=== PATIENT | male | born 1980 | race Asian ===

== ENCOUNTER 2017-12-30 10:14 | Outpatient (CLI) | payer OTHER | END 2017-12-30 10:15 | disposition home or self-care (01) | LOC: SC 10:14 | PROVIDERS: ATTEND Internal Medicine Pulmonary Disease | DX: G47.33 Obstructive sleep apnea (adult) (pediatric) (principal) | CPT/HCPCS: 99203; 99212 ==

== ENCOUNTER 2018-02-18 20:23 | Outpatient (CLI) | payer OTHER | END 2018-02-18 20:24 | disposition home or self-care (01) | LOC: SC 20:23 | PROVIDERS: ATTEND Internal Medicine Pulmonary Disease | DX: G47.33 Obstructive sleep apnea (adult) (pediatric) (principal); I49.3 Ventricular premature depolarization | CPT/HCPCS: 95811 ==

== ENCOUNTER 2018-02-23 14:52 | Outpatient (CLI) | payer OTHER | END 2018-02-23 14:53 | disposition home or self-care (01) | LOC: SC 14:52 | PROVIDERS: ATTEND Internal Medicine Pulmonary Disease | DX: G47.33 Obstructive sleep apnea (adult) (pediatric) (principal) | CPT/HCPCS: 99212; 99213 ==

== ENCOUNTER 2020-01-18 09:42 | Outpatient (CLI) | payer OTHER ==
--- NOTE | 2020-01-18 10:15 | SLEEP CARE CONSULTATION ---
Information from patient questionnaire entered by Jasmin William. I have reviewed and concur with the information entered by Jasmin William. This document represents the service I personally performed and the decisions made by me, Chacorta Mcdermott MD, [facility]. History of Present Illness Service Date and Time: 01/18/2020 0942 Previous diagnosis: Moderate, Obstructive Sleep Apnea-Hypopnea Syndrome AHI: 24.4 (in 2018) Reason for follow up: annual (last seen 2018) Equipment type: CPAP Equipment obtained from: [employer] Mask style: Full face Prior sleep studies: Yes Year and Where: 2018 - [facility] additional information: Mr. Reyna was diagnosed to have moderate obstructive sleep apnea-hypopnea syndrome and returns today for annual follow up of CPAP therapy. The patient purchased the device from [employer] and was fitted with a nasal mask. He continues to use the device nightly and all through the night. The compliance report shows that he uses the device 55 nights out of the past 60 nights, averaging 4.5 hours a night. The > 4 hour compliance rate for the past 30 days is 68.3%. He complains of no particular problem with the device such as soreness on the face, dry nose, epistaxis, nasal congestion or headache. He thinks that the pressure of 12 - 15 cmH2O is comfortable. On the CPAP therapy he notices improvement in his sleep quality, and that he wakes up feeling fresher in the morning and more awake/alert during the day. [place] Sleepiness Scale score is 8. The average residual AHI is 10.3; and average time in large leak per day is, 6 minutes a night. The 90th percentile pressure is 14.9 cmH2O. CPAP Compliance Data - Data Reviewed with Patient Average duration of nightly device use: 4.9 Compliance rate %: 68.3 (60 days) Current pressure setting (cmH2O): 12-15 Humidity settin Heated hose settin Average residual AHI: 10.3 Average large leak: 6 min 2 sec Subjective Missed days of use due to: reports: travel, other (deployment/duty) Initial [place] Sleepiness Scale score: 14 (in 2018) Current [place] Sleepiness Scale score: 8 Allergies and Home Medications Drug allergies reviewed: Yes (NKDA) Home medication list reviewed: Yes Physical Exam Height: 5 ft 7 in Weight: 190 lb Body Mass Index: 29.7 BMI Classification: Overweight Impression and Plan IMPRESSION: 1. Obstructive Sleep Apnea-Hypopnea Syndrome, moderate, with the patient continuing to do fairly well on nasal CPAP therapy. He has slightly [id number] compliance but significant clinical benefits. The current pressure appears slightly ineffective but comfortable. Overall, he is very satisfied with treatment and plans to continue with it long-term. Because the residual AHI is now elevated, I will raise the pressure range. PLAN: 1. Increase autoCPAP to 12 18 cm H2O. 2. Try to lose weight 3. Return in 6 weeks for follow up to recheck the residual AHI value. He will be relocating to [place] in March. Visit Type: In Office Time Spent with Patient (minutes): 15 Provider Statement: I spent 100% of the Face to Face Visit with the patient with greater than 50% spent counseling the patient and coordination of care.
== END 2020-01-18 09:43 | disposition home or self-care (01) ==
LOC: SC 09:42
PROVIDERS: ATTEND Internal Medicine Pulmonary Disease
DX: G47.33 Obstructive sleep apnea (adult) (pediatric) (principal); E66.3 Overweight; Z68.29 Body mass index [BMI] 29.0-29.9, adult
CPT/HCPCS: 99212; 99213

== ENCOUNTER 2020-02-29 09:49 | Outpatient (CLI) | payer OTHER ==
--- NOTE | 2020-02-29 10:26 | SLEEP CARE CONSULTATION ---
Information from patient questionnaire entered by Jasmin William. I have reviewed and concur with the information entered by Jasmin William. This document represents the service I personally performed and the decisions made by me, Chacorta Mcdermott MD, [facility] [place]. History of Present Illness Service Date and Time: 02/29/2020 0949 Previous diagnosis: Moderate, Obstructive Sleep Apnea-Hypopnea Syndrome AHI: 24.4 (in 2018) Reason for follow up: other (6 week with pressure change) Equipment type: CPAP Equipment obtained from: Other ([employer]) Mask style: Full face Prior sleep studies: Yes Year and Where: 2018 - [place], [place] HPI additional information: HPI: Mr. Reyna was diagnosed to have moderate obstructive sleep apnea-hypopnea syndrome and returns today for follow up of CPAP therapy after his pressure was raised from 12 15 to 12 18 cmH2O for elevated residual AHI of 10.3. He wears a full face mask. He continues to use the device nightly and all through the night. The compliance report shows he use the device 25 nights out of the past 30 nights, averaging 6.1 hours a night. The > 4 hour compliance rate for the past 30 days is 67%. He complains of no particular problem with the device such as soreness on the face, dry nose, epistaxis, nasal congestion or headache. He thinks that the pressure of 12 - 15 12 [id number] is comfortable. On the CPAP therapy he notices improvement in his sleep quality, and that he wakes up feeling fresher in the morning and more awake/alert during the day. [place] Sleepiness Scale score is 8. The average residual AHI is now 7.6; and average t iliana in large leak per day is, 3 minutes a night. The 90th percentile pressure is 17.8 cmH2O. Allergies: no known drug allergies CPAP Compliance Data - Data Reviewed with Patient Average duration of nightly device use: 6.05 Compliance rate %: 66.7 Current pressure setting (cmH2O): 12-18 Humidity settin Heated hose settin Average residual AHI: 7.6 Average large leak: 3 min 43 sec Subjective Missed days of use due to: reports: other ( days) Current pressure setting perceived as: comfortable Initial [place] Sleepiness Scale score: 14 (in 2018) Current [place] Sleepiness Scale score: 8 Allergies and Home Medications Drug allergies reviewed: Yes Home medication list reviewed: Yes Physical Exam Vital signs obtained and entered by: To minimize the risk of COVID-19 exposure, detailed exam was not performed. Height: 5 ft 7 in Weight: 190 lb Body Mass Index: 29.7 BMI Classification: Overweight Impression and Plan IMPRESSION: 1. Obstructive Sleep Apnea-Hypopnea Syndrome, moderate, with the patient continuing to do fairly well on nasal CPAP therapy. He has slightly [id number] compliance but significant clinical benefits. The current pressure appears slightly ineffective still but remains comfortable. Overall, he is very satisfied with treatment and plans to continue with it long-term. I will raise the pressure range a little bit more. This is his last visit with us because he is retiring from the [employer] and moving back to [place]. PLAN: 1. Increase autoCPAP to 12 20 cm H2O. 2. Provide the patient with our records for him to take with him to [place]. 3. Establish care with the [facility] at his new location. Visit Type: In Office Time Spent with Patient (minutes): 15 Provider Statement: I spent 100% of the Face to Face Visit with the patient with greater than 50% spent counseling the patient and coordination of care.
== END 2020-02-29 09:50 | disposition home or self-care (01) ==
LOC: SC 09:49
PROVIDERS: ATTEND Internal Medicine Pulmonary Disease
DX: G47.33 Obstructive sleep apnea (adult) (pediatric) (principal); E66.3 Overweight; Z68.29 Body mass index [BMI] 29.0-29.9, adult
CPT/HCPCS: 99212; 99213